=== PATIENT | female | born 1970 | race Caucasian/White ===

== ENCOUNTER 2025-01-21 20:47 | Emergency (ER) | payer BC ==
[~2025-01-21] VITALS: Ht 160 cm; Wt 70.3 kg
== END 2025-01-21 23:48 | disposition home or self-care (01) ==
LOC: ER 20:47
DX: S90.31XA Contusion of right foot, initial encounter (principal); W55.12XA Struck by horse, initial encounter
CPT/HCPCS: 73620; 99283-25; A9270